=== PATIENT | female | born 1995 | race Caucasian/White ===

== ENCOUNTER 2019-04-27 04:07 | Inpatient (IN) | payer SELFPAY ==
[2019-04-27 04:37] VITALS: BMI 31.8
[2019-04-27] MEDS ORDERED: FLU VACC QS2019-20(6MOS UP)/PF 60 MCG/0.5 ML SYRINGE IM ONE (05:30)
[2019-04-27] MEDS ORDERED: HYDROcodone/Acetaminophen 5/325 mg Tablet PO PRN ×2 (08:41)
[2019-04-27] MEDS ORDERED: NS / Oxytocin 40 units/1000ml 1,000 ML IV PRN (08:41)
[2019-04-27] MEDS ORDERED: Promethazine HCl 25 MG/ML VIAL IM PRN (08:41)
[2019-04-27] MEDS ORDERED: Ibuprofen 800 MG TAB PO PRN (08:41)
[2019-04-27] MEDS ORDERED: hydrALAZINE 20 MG/ML VIAL SLOW IVP PRN (08:41)
[2019-04-27] MEDS ORDERED: Butorphanol Tartrate 1 MG/ML VIAL SLOW IVP PRN (08:41)
[2019-04-27] MEDS ORDERED: Ondansetron PF 4 MG/2 ML Vial IVP PRN (08:41)
[2019-04-27] MEDS ORDERED: Lidocaine 1% (PF) 30 ML VIAL SC PRN (08:41)
[2019-04-27] MEDS ORDERED: Betamet Acet/Betamet Na Ph 30 MG/5 ML VIAL ONE (08:45)
[2019-04-27] MEDS ORDERED: Lactated Ringer's 1,000 ML IV SCH (08:45)
[2019-04-27] MEDS ORDERED: CEFAZOLIN 1 GM in Sodium Chloride 0.9% 100 ML IVPB SCH (08:45)
--- NOTE | 2019-04-27 08:48 | PDOC.LDHP ---
Labor and Delivery H&P Chief complaint: contractions HPI: Navya Ny is a 23 y.o at 36w5d with complaints of contractions. Starting last night at 2000 she started having irregular contractions. Around 0100 on 04/27/19 they got more consistent. She denies ROM, but does reports some mucus like discharge. She denies KERNS/RUQ pain/ vision changes. Denies SOB , Cough, wheezing, chest pain. Denies Urinary complaints, denies constipation, and diarrhea. Current gestational age (weeks): 36 (5 days) Grav: 2 Para: 1 OB History Details: 11/2017, , 8lbs 4oz, terms, with PreE 2019 current Current complications: other () Abnormal US findings: No Past Medical History: Anxiety Depression Anemia Migraines Current medications: pre-katherine vitamins Previous surgical history: none Allergies/Adverse Reactions: Allergies Allergy/AdvReac Type Severity Reaction Status Date / Time penicillin G Allergy Severe Verified 04/27/19 04:32 Social history: none - Physical Exam Vital signs reviewed and normal: yes General: breathing through contractions Heart: other Lungs: nonlabored breathing Abdomen: gravid Extremeties: no edema FHT: category 1 - Vaginal Exam cm dilated: 3 - OB Labs Blood type: O RH: positive Antibody Screen: negative HIV: negative RPR: negative HEPSAg: negative 1 hour GCT: negative GBS: unknown Urine drug screen: negative Rubella: immune - Assessment L&D Assessment: labor - Plan Plan: admit to L&D, GBS antibiotic prophylaxis (Using Ancef. Pt reaqction to PCN was hives and tightness in throat. Did not visit ER for anyphylaxsis), other (Celestone 12mg IM Q12hr for lung development Anticipate )
[2019-04-27 08:58] VITALS: BP 109/56; TEMP 99.1
[2019-04-27] MEDS ORDERED: Betamet Acet/Betamet Na Ph 30 MG/5 ML VIAL IM SCH (09:00)
[2019-04-27 09:40] LABS: Hemoglobin 11.6 g/dL (12.0-16.0); Mean Corpuscular HGB CONC 36.4 g/dL (32.0-36.0); Mean Corpuscular Volume 90.8 fL (78.0-98.0); Mean Platelet Volume 9.4 fL (7.4-10.4); Platelet Count 178 thou/uL (130-400); Red Blood Cell (RBC) Count 3.52 mill/uL (4.20-5.40); White Blood Cell (WBC) Count 11.1 thou/uL (4.8-10.8)
[2019-04-27] MEDS ORDERED: ceFAZolin 1 GM/D5W 1 GM in Premix Bag 1 BAG IVPB SCH (09:45)
[2019-04-27 10:03] LABS: HBSAg Index 0.13 S/CO (0-0.99); Hep B Surf Ag Non-Reactive S/CO (NonReactive); Syphilis Antibody Nonreactive (Nonreactive); Syphilis Antibody Index 0.04 S/CO (<1.00 Non-Reactive)
== END 2019-04-27 13:47 | disposition home or self-care (01) | DRG 833 ==
LOC: L&D/OP 04:07 → L&D 09:27
PROVIDERS: ADMIT Obstetrics & Gynecology; ATTEND Obstetrics & Gynecology
DX: O60.03 Preterm labor without delivery, third trimester (principal); O99.343 Other mental disorders complicating pregnancy, third trimester; F41.9 Anxiety disorder, unspecified; O99.013 Anemia complicating pregnancy, third trimester; D64.9 Anemia, unspecified; O99.353 Diseases of the nervous system complicating pregnancy, third trimester; G43.909 Migraine, unspecified, not intractable, without status migrainosus; F32.9 Major depressive disorder, single episode, unspecified; Z3A.36 36 weeks gestation of pregnancy
CPT/HCPCS: 36415; 85027; 86780; 86850; 86900; 86901; 87340; J0690; J0702

== ENCOUNTER 2019-05-01 17:53 | Inpatient (IN) | payer SELFPAY ==
[2019-05-01] MEDS ORDERED: hydrALAZINE 20 MG/ML VIAL SLOW IVP PRN ×2 (18:52→20:05)
[2019-05-01 18:54] VITALS: BMI 31.8
[2019-05-01 19:31] LABS: #Eosinphils 0.1 thou/uL (0.0-0.7); #Lymphocytes 1.9 thou/uL (1.20-3.40); #Monocytes 1.3 thou/uL (0.11-0.59); #Neutrophils 6.5 thou/uL (1.40-6.50); %Basophils 0.3 % (0.0-1.0); %Eosinophils 1.1 % (0.0-10.0); %Monocytes 13.5 % (0.0-10.0); %Neutrophils 66.1 % (42.0-75.0); Hemoglobin 10.7 g/dL (12.0-16.0); Mean Corpuscular HGB CONC 36.3 g/dL (32.0-36.0); Mean Corpuscular Hemoglobin 33.2 pg (27.0-31.0); Mean Corpuscular Volume 91.4 fL (78.0-98.0); Mean Platelet Volume 9.7 fL (7.4-10.4); Platelet Count 196 thou/uL (130-400); RBC Distribution Width 14.9 % (11.5-14.5); Red Blood Cell (RBC) Count 3.22 mill/uL (4.20-5.40); White Blood Cell (WBC) Count 9.8 thou/uL (4.8-10.8)
[2019-05-01 19:44] LABS: Creatinine, Urine 37.45 mg/dL (47-110); Protein, Urine Random Quant Less than 10 mg/dL (1-14)
[2019-05-01 19:49] LABS: ALT (SGPT) 168 U/L (8-55); AST (SGOT) 107 U/L (5-34); Albumin 3.1 g/dL (3.5-5.0); Alkaline Phosphatase 186 U/L (40-110); Anion Gap 14 mmol/L (10-20); BUN (Urea Nitrogen) 13 mg/dL (7.0-18.7); Bilirubin, Total 0.3 mg/dL (0.2-1.2); Calc. Creatinine Clearance 200 mL/min (70-130); Calcium 8.7 mg/dL (7.8-10.44); Carbon Dioxide 20 mmol/L (22-29); Chloride 108 mmol/L (98-107); Estimated GFR-MDRD Greater than 90; Globulin 2.7 g/dL (2.4-3.5); Glucose 74 mg/dL (70-105); Potassium 3.7 mmol/L (3.5-5.1); Protein, Total 5.8 g/dL (6.0-8.3); Sodium 138 mmol/L (136-145)
[2019-05-01] MEDS ORDERED: FLU VACC QS2019-20(6MOS UP)/PF 60 MCG/0.5 ML SYRINGE IM ONE (20:00)
[2019-05-01] MEDS ORDERED: Promethazine HCl 25 MG/ML VIAL IM PRN (20:05)
[2019-05-01] MEDS ORDERED: Ondansetron PF 4 MG/2 ML Vial IVP PRN (20:05)
[2019-05-01 20:33] LABS: Acetaminophen Less than 6.0 mcg/mL (10.0-30.0); Alcohol Less than 10 mg/dL (Less than 10); Salicylate Less than 8.0 mg/dL (15.0-30.0)
[2019-05-01 20:34] LABS: Amphetamine Not Detected (NotDetected); Barbiturates Screen Not Detected (NotDetected); Benzodiazepine Screen Not Detected (NotDetected); Cocaine Metabolite Screen Not Detected (NotDetected); Medtox Control Line Valid? VALID (VALID); Medtox Reader # READER 4; Methadone Not Detected (NotDetected); Methamphetamine Not Detected (NotDetected); Opiate Screen Not Detected (NotDetected); Oxycodone Screen Not Detected (NotDetected); Phencyclidine (PCP) Not Detected (NotDetected); THC/Cannabinoid Screen Not Detected (NotDetected); Tricyclic Screen Not Detected (NotDetected)
[2019-05-01 20:40] LABS: Hemoglobin 10.9 g/dL (12.0-16.0); Mean Corpuscular HGB CONC 36.3 g/dL (32.0-36.0); Mean Corpuscular Hemoglobin 33.2 pg (27.0-31.0); Mean Corpuscular Volume 91.5 fL (78.0-98.0); Mean Platelet Volume 9.8 fL (7.4-10.4); Platelet Count 198 thou/uL (130-400); RBC Distribution Width 14.9 % (11.5-14.5); Red Blood Cell (RBC) Count 3.27 mill/uL (4.20-5.40); White Blood Cell (WBC) Count 10.6 thou/uL (4.8-10.8)
[2019-05-01 21:16] LABS: Syphilis Antibody Nonreactive (Nonreactive); Syphilis Antibody Index 0.03 S/CO (<1.00 Non-Reactive)
--- NOTE | 2019-05-01 22:15 | ULT ---
EXAM: OB ultrasound Umbilical artery ultrasound COMPARISON: None HISTORY: Preeclampsia TECHNIQUE: Multiplanar grayscale and color Doppler images were obtained in a transabdominal ult rasound. Spectral analysis of the Doppler waveforms of the umbilical artery were performed. FINDINGS: There is a single live intrauterine with heart rate of 152 bpm. The fetus is in v ertex presentation. Analysis of the umbilical artery shows persistent flow in diastole and normal systolic to diastolic r atio. The placenta is left lateral in location without focal abnormality. DARVIN is 10.3 cm which is normal. T he cervix is normal in length. There is no evidence of placenta previa. IMPRESSION: 1. Single live intrauterine 2. Normal umbilical artery ultrasound
[2019-05-01 22:27] LABS: HBSAg Index 0.13 S/CO (0-0.99); Hep B Core Total Ab Non-Reactive (NonReactive); Hep B Core Total Index 0.05 S/CO (0-0.79); Hep B Surf Ag Non-Reactive S/CO (NonReactive); Hep C IgG Ab Non-Reactive (NonReactive); Hep C Index 0.05 S/CO (0-0.79)
--- NOTE | 2019-05-01 22:59 | PDOC.FPROB ---
FMR OB H&P: HPI - History of Present Illness Chief Complaint: Elevated BP's Indentification: 23 year old at 37.2 wks History of Present Illness: 23 year old at 37.2 wks presents with elevated BP's. Patient states that last night she started to feel "puffy" and swollen. Her BP's last night were reportedly mild range. She woke up this morning feeling worse. She had a BP high to 154/90. She has history of Pre-E in last with term . Patient called the regional marketing director physician who advised she come to L&D for further workup. Patient denies vision changes, headaches, vaginal discharge, abdominal pain, LoF, or contractions. She endorses movement. Patient has had no complications in up to this point. Primary Care Physician: Gio FMR OB H&P: Current - Care : 2 Para: 1001 Gestational age: 37.2 wks Due date: 05/20/2019 - OB Labs Blood type: O RH: positive Antibody Screen: negative HIV: negative RPR: negative HepBsAg: negative Urine drug screen: negative Gonorrhea: negative Chlamydia: negative 1 hour gtt: 93 GBS: unknown FMR OB H&P: History - Past Medical History PMH: Anxiety Depression - OB History OB History: Pre-E in prior , on ASA Anemia of - MUNICIPAL FIREFIGHTER History MUNICIPAL FIREFIGHTER History: Denies history of STD's or PID - Surgical History Sx History: [place] teeth removal - Social History Social History: Denies tobacco, alcohol, or drug use - Family History Family History: Mother with breast and cervical cancer FMR OB H&P: Medications - Current Home Medications: Medication Instructions Recorded Confirmed Type Aspirin [Ecotrin Low Strength] 1 tab PO DAILY 04/27/19 05/01/19 History Iron 1 tab PO DAILY 04/27/19 05/01/19 History Vit37/Iron/Folic Acid 1 tab PO DAILY 04/27/19 05/01/19 History [Prenata Chewable Tablet] Allergies/Adverse Reactions: Allergies Allergy/AdvReac Type Severity Reaction Status Date / Time penicillin G Allergy Severe Verified 04/27/19 04:32 FMR OB H&P: ROS - Review of Systems General: reports: weight/appetite/sleep changes (Increase in weight). denies: fever/chills Eyes: denies: vision changes, double vision, scotomas ENT: denies: nasal congestion, rhinorrhea, sore throat Cardiovascular: reports: edema. denies: chest pain, palpitation Respiratory: denies: cough, shortness of breath Gastrointestinal: denies: abdominal pain, nausea, vomiting, diarrhea Genitourinary (Female): denies: dysuria, vaginal discharge, vaginal bleeding, contractions Musculoskeletal: denies: pain, stiffness Neurologic: denies: numbness, syncope Integumentary: denies: itching, rash, lesions Hematologic/Lymphatic: denies: prolonged or excessive bleeding Psychological: reports: depression, anxiety FMR OB H&P: Vital Signs - Maternal Vital signs: Vital Signs - First Documented Temp Pulse Resp BP 98.7 F 83 18 122/83 05/01/19 18:20 05/01/19 18:20 05/01/19 18:20 05/01/19 18:20 - Heart Tones Baseline: 140 Variability: moderate Acceleration: present Deceleration: absent [place] contractions every: None FMR OB H&P: Physical Exam - Physical Exam General: NAD, awake, alert and oriented HEENT: EOMI, MMM, grossly normal vision, grossly normal hearing Heart: RRR, pulses present, other (1+ edema 16 pound weight gain in last week) General: CTAB, no respiratory distress Abdomen: soft, gravid, non-tender Musculoskeletal: pulses present, FROM in all four extremities Neurological: no tremor, no focal deficit Skin: no rash, capillary refill <2 seconds Lymphatic: no unusual bruising or bleeding Psychiatric: intact recent and remote memory, good judgement and insight, normal mood and affect FMR OB H&P: Results - Labs Lab results: Laboratory Results - last 24 hr 05/01/19 05/01/19 05/01/19 19:10 19:10 19:19 WBC RBC Hgb Hct MCV MCH MCHC RDW Plt Count MPV Neutrophils % Lymphocytes % Monocytes % Eosinophils % Basophils % Neutrophils # Lymphocytes # Monocytes # Eosinophils # Basophils # Sodium 138 Potassium 3.7 Chloride 108 H Carbon Dioxide 20 L Anion Gap 14 BUN 13 Creatinine 0.63 Estimated GFR (MDRD) Greater than 90 Glucose 74 Calcium 8.7 Total Bilirubin 0.3 AST 107 H ALT 168 H Alkaline Phosphatase 186 H Serum Total Protein 5.8 L Albumin 3.1 L Globulin 2.7 Albumin/Globulin Ratio 1.1 L U Random Total Protein Less than 10 Urine Creatinine 37.45 L Salicylates Urine Opiates Screen Not Detected Ur Oxycodone Screen Not Detected Urine Methadone Screen Not Detected Ur Propoxyphene Screen Not Detected Acetaminophen Ur Barbiturates Screen Not Detected Ur Tricyclics Screen Not Detected Ur Phencyclidine Scrn Not Detected Ur Amphetamines Screen Not Detected U Methamphetamines Scrn Not Detected U Benzodiazepines Scrn Not Detected U Cocaine Metab Screen Not Detected U Cannabinoids Screen Not Detected Drug Screen Comment Plasma Alcohol Syphilis IgG/IgM Ab Blood Type Antibody Screen 05/01/19 05/01/19 05/01/19 19: 19: 19: WBC 9.8 RBC 3.22 L Hgb 10.7 L Hct 29.5 L MCV 91.4 MCH 33.2 H MCHC 36.3 H RDW 14.9 H Plt Count 196 MPV 9.7 Neutrophils % 66.1 Lymphocytes % 19.0 L Monocytes % 13.5 H Eosinophils % 1.1 Basophils % 0.3 Neutrophils # 6.5 Lymphocytes # 1.9 Monocytes # 1.3 H Eosinophils # 0.1 Basophils # 0.0 Sodium Potassium Chloride Carbon Dioxide Anion Gap BUN Creatinine Estimated GFR (MDRD) Glucose Calcium Total Bilirubin AST ALT Alkaline Phosphatase Serum Total Protein Albumin Globulin Albumin/Globulin Ratio U Random Total Protein Urine Creatinine Salicylates Less than 8.0 L Urine Opiates Screen Ur Oxycodone Screen Urine Methadone Screen Ur Propoxyphene Screen Acetaminophen Less than 6.0 L Ur Barbiturates Screen Ur Tricyclics Screen Ur Phencyclidine Scrn Ur Amphetamines Screen U Methamphetamines Scrn U Benzodiazepines Scrn U Cocaine Metab Screen U Cannabinoids Screen Drug Screen Comment Plasma Alcohol Less than 10 Syphilis IgG/IgM Ab Blood Type O POSITIVE Antibody Screen NEGATIVE 05/01/19 05/01/19 20:28 20:28 WBC 10.6 RBC 3.27 L Hgb 10.9 L Hct 29.9 L MCV 91.5 MCH 33.2 H MCHC 36.3 H RDW 14.9 H Plt Count 198 MPV 9.8 Neutrophils % Lymphocytes % Monocytes % Eosinophils % Basophils % Neutrophils # Lymphocytes # Monocytes # Eosinophils # Basophils # Sodium Potassium Chloride Carbon Dioxide Anion Gap BUN Creatinine Estimated GFR (MDRD) Glucose Calcium Total Bilirubin AST ALT Alkaline Phosphatase Serum Total Protein Albumin Globulin Albumin/Globulin Ratio U Random Total Protein Urine Creatinine Salicylates Urine Opiates Screen Ur Oxycodone Screen Urine Methadone Screen Ur Propoxyphene Screen Acetaminophen Ur Barbiturates Screen Ur Tricyclics Screen Ur Phencyclidine Scrn Ur Amphetamines Screen U Methamphetamines Scrn U Benzodiazepines Scrn U Cocaine Metab Screen U Cannabinoids Screen Drug Screen Comment Plasma Alcohol Syphilis IgG/IgM Ab Nonreactive Blood Type Antibody Screen FMR OB H&P: A/P - Problem List (1) Term Current Visit: Yes Status: Acute Code(s): Z34.90 - ENCNTR FOR SUPRVSN OF NORMAL , UNSP, UNSP TRIMESTER (2) Transaminitis Current Visit: Yes Status: Acute Code(s): R74.0 - NONSPEC ELEV OF LEVELS OF TRANSAMNS & LACTIC ACID DEHYDRGNSE (3) Elevated BP without diagnosis of hypertension Current Visit: Yes Status: Acute Code(s): R03.0 - ELEVATED BLOOD-PRESSURE READING, W/O DIAGNOSIS OF HTN (4) Anxiety Current Visit: Yes Status: Acute Code(s): F41.9 - ANXIETY DISORDER, UNSPECIFIED (5) Depression Current Visit: Yes Status: Acute Code(s): F32.9 - MAJOR DEPRESSIVE DISORDER , SINGLE EPISODE, UNSPECIFIED (6) History of pre-eclampsia in prior , currently Current Visit: Yes Status: Acute Code(s): O09.299 - SUPRVSN OF PREG W POOR REPRODCTV OR OBSTET HISTORY, UNSP TRI Disposition: 23 year old at 37.2 wks TIUP - O+, cannot find documentation or rubella status - No complications in current - Hx Pre-E at 40 wks with prior - Concern for gHTN vs. Pre-E given swelling and elevated BP's at home - No documentation of GBS status, will obtain GBS swab and treat for GBS if patient induced as she has had GBS in prior - Growth today with hadlock 94%, cephalic presentation, DARVIN 10 cm Elevated BP without diagnosis of HTN - Patient reports BP high to 150/40 at home - Significant swelling with weight gain 16 pounds in 1 week - BP's on L&D have all been WNL - AST/ALT both 2x normal limit, but in absence of elevated BP or other severe features, not an indication for delivery at this time - Monitor BP for 4 hours - Will obs overnight and collect 12h urine protein as this may be more accurate than the urine protein/creatinine ratio which was neg - CBC with mild anemia, consistent with previous diagnosis of anemia - AST/ALT 2x upper limit of normal. In absence of elevated BP or other acute findings, not indication for delivery at this time - Will continue to monitor BP and if patient spikes elevated BP, will induce for Pre-E Transaminitis - AST and ALT 2x upper limit of normal - Hepatitis panel pending - RUQ abdominal ultrasound negative - Uncertain etiology - Continue to monitor BP, and if patient spikes elevated BP, will need to induce for pre-E severe features - Drug screen negative - Coag studies pending - Repeat CMP in AM Hx of Pre-E in prior - Patient on daily ASA - No previously documented elevated BP's in this Anemia - Continue iron supplementation Anxiety/Depression - Not currently on medications, but patient undergoing counseling Migraines - Currently asymptomatic Dispo: Obs on L&D. 12h urine protein. Monitor BP's. Will need GBS ppx if induced. Discussion: Date/Time: 05/01/19 1006 This H&P was discussed with Dr. Linda who agrees with the above documentation and plan. Signature: Nury Mondragon DO PGY-3 Addendum - Attending - Attending Attestation Date/Time: 05/04/19 [id number] I personally evaluated the patient and discussed the management with Dr. Mondragon I agree with the History, Examination, Assessment and Plan documented above with any addition or exceptions noted below. Pt reports swelling and elevated bp at home. has h/o preeclampsia with previous . denies hodges/sob/abd pain. Work up sig for isolated elevated lfts. hepatitis panel is neg, tylenol levels not elevated, ruq us w/o sign of gallbladder disease or fatty liver/ Pt has 16lb wt gain in the last 10 days. We will admit to observation for 12hr urine collection and bp monitoring. Pt may be developing an atypical presentation for preeclampsia. will continue to observe
[2019-05-01 23:10] LABS: HBSAB Concentration 3044.32 mIU/mL; Hep B Surf AB Reactive (NonReactive)
[2019-05-02 02:22] LABS: Prothrombin Time 12.8 SEC (12.0-14.7)
[2019-05-02] MEDS: Acetaminophen 500 MG TAB PO PRN ×2 (06:37→12:34)
--- NOTE | 2019-05-02 10:09 | PDOC.EVN ---
Event Note - Event Note Event Note: SOLITARIO OnCopal 37 weeks 2 days At bedside now Case reviewed Here with Dr Alfie Duque KERNS O. BP 135/84 CBC pending Strop reviewed A/P: Suspected Preeclampsia (atypical) with LFT elevation but BPs ok Labs pending this AM Discussed possible IOL...we will likely do so this admit. I will review with Dr Li
[2019-05-02 10:13] LABS: #Basophils 0.1 thou/uL (0.0-0.2); #Eosinphils 0.1 thou/uL (0.0-0.7); #Monocytes 0.7 thou/uL (0.11-0.59); #Neutrophils 5.2 thou/uL (1.40-6.50); %Basophils 0.7 % (0.0-1.0); %Eosinophils 1.4 % (0.0-10.0); %Lymphocytes 24.4 % (21.0-51.0); %Monocytes 8.2 % (0.0-10.0); %Neutrophils 65.3 % (42.0-75.0); Hemoglobin 10.7 g/dL (12.0-16.0); Mean Corpuscular HGB CONC 36.3 g/dL (32.0-36.0); Mean Corpuscular Hemoglobin 33.3 pg (27.0-31.0); Mean Corpuscular Volume 91.7 fL (78.0-98.0); Mean Platelet Volume 9.7 fL (7.4-10.4); Platelet Count 180 thou/uL (130-400); RBC Distribution Width 15.1 % (11.5-14.5)
[2019-05-02 10:22] LABS: Urine Total Volume 1575 mL (600-1600)
[2019-05-02 10:54] LABS: ALT (SGPT) 150 U/L (8-55); AST (SGOT) 83 U/L (5-34); Alkaline Phosphatase 180 U/L (40-110); Anion Gap 16 mmol/L (10-20); BUN (Urea Nitrogen) 10 mg/dL (7.0-18.7); Bilirubin, Total 0.3 mg/dL (0.2-1.2); Calc. Creatinine Clearance 216 mL/min (70-130); Calcium 8.5 mg/dL (7.8-10.44); Carbon Dioxide 18 mmol/L (22-29); Chloride 107 mmol/L (98-107); Estimated GFR-MDRD Greater than 90; Globulin 2.4 g/dL (2.4-3.5); Glucose 105 mg/dL (70-105); Potassium 3.6 mmol/L (3.5-5.1); Protein, Total 5.4 g/dL (6.0-8.3); Sodium 137 mmol/L (136-145)
[2019-05-02 10:55] LABS: Protein, Urine Less than 10 mg/dL (1-14)
--- NOTE | 2019-05-02 11:23 | PDOC.EVN ---
Event Note - Event Note Event Note: SOLITARIO OnCall: Lab Check Labs with slightly decreased LFTs but still above normal (ast 80s, ALT 150s). I notified Dr Li, but she is out of town until late PM. I was then notified by Tamica that the patient sees Josefina Chaidez. I have sent Josefina Chaidez a tiger text to see who the private provider is for the patient. I believe it would be best to have IOL. Kaylynn has informed me she is out of town. I will plan on IOL this PM, and see when Guillermo returns.
--- NOTE | 2019-05-02 20:57 | PDOC.EVN ---
Event Note - Event Note Event Note: At Bedside Mary Lou good FM NST reactive 130/74 Reviewed cytotec tonight again with her...reason for IOL is atypical Preeclampsia with elevated LFTs GBS was collected but results pending...hold on ABX for now as over 37 weeks. Add ABX if results are pos
[2019-05-02] MEDS ORDERED: Misoprostol 100 MCG TAB VAG SCH (21:00)
[2019-05-02] MEDS: Misoprostol 100 MCG TAB VAG SCH (22:15)
[2019-05-02] MEDS: Lactated Ringer's 1,000 ML IV SCH (22:15)
[2019-05-03] MEDS: Misoprostol 100 MCG TAB VAG SCH ×2 (01:40→13:51)
--- NOTE | 2019-05-03 06:13 | PDOC.EVN ---
Event Note - Event Note Event Note: s/p cytotec last PM... This AM last check: 3cm dilation per RN I have reviewed her monitor strip Will start pitocin at 0700 to continue IOL GBS culture still pending in lab
--- NOTE | 2019-05-03 07:24 | ULT ---
US Gallbladder RUQ: 05/01/2019 8:01 PM CLINICAL HISTORY: Elevated LFTs. STUDY: Limited right upper quadrant ultrasound of abdomen. COMPARISON: None. FINDINGS: Liver: Size: Normal. Echogenicity: Normal. Contour: Smooth. Mass: None. Bile ducts: No intrahepatic or extrahepatic biliary dilatation. Common bile duct measures 3 mm. Gallbladder: Normal. Pancreas: Head, body, and tail appear normal. Right kidney: No pelvicalyceal dilatation. Right kidney measuring 11.5 cm in length. IMPRESSION: Unremarkable exam.
[2019-05-03] MEDS ORDERED: Calcium Gluc 4.6 MEQ/10 ML (100 MG/ML) SLOW IVP PRN (08:32)
--- NOTE | 2019-05-03 08:37 | PDOC.EVN ---
Event Note - Event Note Event Note: Received report from Dr. Ness. at 37 3/7 weeks with PIH, elevated LFTs now undergoing induction. Last SVE . FHTs sstable. Last BP= > 160 systolic. Will start MgSo4 and begin ABX for h/o +GBS. Pen allergic but has had Ancef w/o problems recently. Continue induction.
[2019-05-03] MEDS ORDERED: Magnesium Sulfate 20 gm/500 ml 20 GM/500 ML BAG IVPB SCH ×2 (08:45→15:37)
[2019-05-03] MEDS ORDERED: Magnesium Sulfate 20 GM/WATER 500 ML BAG IVPB SCH (08:45)
[2019-05-03] MEDS: ceFAZolin 1 GM/D5W 1 GM in Premix Bag 1 BAG IVPB SCH (09:19)
[2019-05-03] MEDS: Lactated Ringer's 1,000 ML IV SCH ×2 (09:20→12:56)
[2019-05-03] MEDS ORDERED: Fentanyl 4 mcg/Bup 0.1% Cadd 100 ML ONE (09:52)
[2019-05-03] MEDS ORDERED: diphenhydrAMINE 50 MG/ML VIAL IVP PRN (10:27)
[2019-05-03] MEDS ORDERED: Lactated Ringer's 500 ML IV PRN (10:27)
[2019-05-03] MEDS ORDERED: Ondansetron PF 4 MG/2 ML Vial IVP PRN (10:27)
[2019-05-03] MEDS ORDERED: ePHEDrine/0.9% NaCl/PF SYRINGE 50 mg/10 ml SLOW IVP PRN (10:27)
[2019-05-03] MEDS ORDERED: Acetaminophen 325 MG TAB PO PRN (10:27)
[2019-05-03] MEDS ORDERED: Naloxone HCl 0.4 mg/ml Vial IVP PRN ×2 (10:27)
[2019-05-03] MEDS ORDERED: Promethazine HCl 25 MG/ML VIAL IM PRN (10:27)
[2019-05-03] MEDS ORDERED: Communication Order-Pharmacy FS SCH (10:30)
[2019-05-03] MEDS ORDERED: Fentanyl 4 mcg/Bupivacaine 0.1% Cassette 100 ML EPIDURAL SCH (10:30)
--- NOTE | 2019-05-03 10:35 | PDOC.EVN ---
Event Note - Event Note Event Note: Comfortable s/p epidural. SVE 4/80/-1, vtx. Fhts are stable. UCs q 2-4 min. Pit at 10 mu/min. Mg at 2 gms per hr. Continue induction.
[2019-05-03] MEDS ORDERED: Lidocaine 1% (PF) 30 ML VIAL ONE (13:06)
--- NOTE | 2019-05-03 13:45 | PDOC.EVN ---
Event Note - Event Note Event Note: Patient is resting comfortably in bed. She notes some discomfort with recent contractions. Epidural placed. Recent SVE 5.5/80/-2 @ 12:20. FHT stable, baseline 130s, no decel, mod variability, no recent accel. Ctx q 1-3 min. Pit was decreased to 8 for a time, now back at 10. Last BP 135/87. Mg at 2 gms/hr. Continue current management. Addendum - Attending - Attending Attestation Date/Time: 05/03/191944 I personally evaluated the patient and discussed the management with Dr. Greenwood I agree with the Assessment and Plan documented above.
[2019-05-03] MEDS: NS w/ Oxytocin 10 units 500 ML IV SCH (13:51)
[2019-05-03] MEDS ORDERED: CEFAZOLIN IVPB SCH (14:00)
[2019-05-03] MEDS ORDERED: CEFAZOLIN 1 GM in Sodium Chloride 0.9% 100 ML IVPB SCH (14:00)
[2019-05-03] MEDS: NS / Oxytocin 40 units/1000ml 1,000 ML ONE ×2 (15:00→16:37)
[2019-05-03] MEDS: Misoprostol 200 MCG TAB ONE ×2 (15:06→15:07)
[2019-05-03] MEDS ORDERED: Carboprost 250 MCG/ML AMP ONE (15:10)
[2019-05-03] MEDS ORDERED: Tranexamic Acid 1,000 MG/10 ML VIAL ONE (15:31)
[2019-05-03] MEDS ORDERED: Bisacodyl 10 MG SUPP PR PRN (15:33)
[2019-05-03] MEDS ORDERED: Lanolin Ointment 7 GM TUBE TOP PRN (15:33)
[2019-05-03] MEDS ORDERED: Misoprostol 200 MCG TAB VAG PRN (15:33)
[2019-05-03] MEDS ORDERED: Benzocaine-Menthol 82.5 ML CAN TOP PRN (15:33)
[2019-05-03] MEDS ORDERED: Milk Of Magnesia 30 ML UDCUP PO PRN (15:33)
--- NOTE | 2019-05-03 15:35 | PDOC.OPDEL ---
OB Operative/Delivery Note Delivery Dr/Surgeon: Allegra Assist: Krystyna Pre-Delivery Diagnosis: medically indicated induction Procedure/Post Delivery Dx: spontaneous vaginal delivery Weeks gestation: 37 Anesthesia: local - Additional Findings/Plan Placenta delivered: spontaneous Repaired Obstetrical Laceration: periurethral Estimated blood loss: 700, QBL pending Compilations/Other Findings: Rapid progress with . Placenta delivered intact [place]. Small periuretral lac sutered with 3-0 chromic. Garcia placed. Episodess of atony tx. with Cytotec 800 mcg MO, Hemabate 250 mcg IM and TXA 1 gm IV. T&C x 3 units. H/H, PT/PTT, fibrinogen ordered.
[2019-05-03 15:43] LABS: Hemoglobin 10.5 g/dL (12.0-16.0); Platelet Count 202 thou/uL (130-400)
[2019-05-03] MEDS ORDERED: NS / Oxytocin 40 units/1000ml 1,000 ML IV SCH (15:45)
[2019-05-03 15:49] LABS: INR-International Normal Ratio 0.9; Prothrombin Time 12.5 SEC (12.0-14.7)
--- NOTE | 2019-05-03 16:26 | PDOC.EVN ---
Event Note - Event Note Event Note: Minimal bleeding seen now. VSS Pulse= 90's. Labs return: H/H= 10.5/29.7, plts= 202, PT/PTT= 12.5/24, fibrinogen= 446. Will cont. Mg at 1 gm/hr and follow serial H/Hs.
[2019-05-03] MEDS ORDERED: Tranexamic Acid 1,000 MG in Sodium Chloride 0.9% 250 ML 250 ML IVPB ONE (16:30)
[2019-05-03] MEDS ORDERED: Carboprost 250 MCG/ML AMP IM SCH (16:30)
[2019-05-03] MEDS: Ferrous Sulfate 325 MG TAB PO SCH (17:31)
[2019-05-03] MEDS: Ibuprofen 800 MG TAB PO SCH (17:48)
[2019-05-03 21:28] LABS: #Eosinphils 0.1 thou/uL (0.0-0.7); #Lymphocytes 1.3 thou/uL (1.20-3.40); #Monocytes 1.2 thou/uL (0.11-0.59); #Neutrophils 10.1 thou/uL (1.40-6.50); %Basophils 0.2 % (0.0-1.0); %Eosinophils 0.5 % (0.0-10.0); %Lymphocytes 10.4 % (21.0-51.0); %Monocytes 9.2 % (0.0-10.0); %Neutrophils 79.6 % (42.0-75.0); Hemoglobin 8.7 g/dL (12.0-16.0); Mean Corpuscular HGB CONC 35.8 g/dL (32.0-36.0); Mean Corpuscular Hemoglobin 33.1 pg (27.0-31.0); Mean Corpuscular Volume 92.5 fL (78.0-98.0); Mean Platelet Volume 9.5 fL (7.4-10.4); Platelet Count 145 thou/uL (130-400); RBC Distribution Width 15.2 % (11.5-14.5); Red Blood Cell (RBC) Count 2.63 mill/uL (4.20-5.40); White Blood Cell (WBC) Count 12.6 thou/uL (4.8-10.8)
[2019-05-03] MEDS ORDERED: Lidocaine 2% MPF 10 ML AMP (For Epidural Use) ONE (21:36)
[2019-05-04] MEDS: Docusate Calcium (SURFAK) 240 MG CAP PO SCH ×3 (00:05→21:58)
[2019-05-04] MEDS: Lactated Ringer's 1,000 ML IV SCH ×4 (00:51→21:06)
--- NOTE | 2019-05-04 05:05 | PDOC.PP ---
Post Progress Note Post Day #: PPD1 Subjective: Resting, no complaints. PO intake tolerated: yes Flatus: no Ambulation: no Weight Weight 99.337 kg - Physical Examination General: NAD Respiratory: non-labored breathing Neurological: no gross focal deficits Psychiatric: normal affect Result Diagrams: 05/03/19 21:09 05/02/19 09:59 Additional Labs: Post Labs Blood Type O POSITIVE 05/01/19 19:19 Hep Bs Antigen Non-Reactive S/CO (NonReactive) 05/01/19 20:28 - Assessment/Plan Doing well s/p with PPH. Mgso4 x 24 hrs delivered. Repeat CBC this AM.
[2019-05-04] MEDS: ceFAZolin 1 GM/D5W 1 GM in Premix Bag 1 BAG IVPB SCH ×4 (05:16→21:06)
[2019-05-04] MEDS: Ibuprofen 800 MG TAB PO SCH ×3 (05:54→21:58)
[2019-05-04 06:29] LABS: #Lymphocytes 1.3 thou/uL (1.20-3.40); #Monocytes 0.8 thou/uL (0.11-0.59); #Neutrophils 7.8 thou/uL (1.40-6.50); %Basophils 0.2 % (0.0-1.0); %Eosinophils 0.4 % (0.0-10.0); %Lymphocytes 12.9 % (21.0-51.0); %Monocytes 7.9 % (0.0-10.0); %Neutrophils 78.5 % (42.0-75.0); Hemoglobin 8.6 g/dL (12.0-16.0); Mean Corpuscular HGB CONC 35.7 g/dL (32.0-36.0); Mean Corpuscular Volume 92.3 fL (78.0-98.0); Platelet Count 172 thou/uL (130-400); RBC Distribution Width 15.4 % (11.5-14.5); White Blood Cell (WBC) Count 9.9 thou/uL (4.8-10.8)
[2019-05-04] MEDS: NS w/ Oxytocin 10 units 500 ML IV SCH (07:04)
[2019-05-04] MEDS ORDERED: Adacel (T-DAP) 0.5 ML SYRINGE IM ONE (09:00)
[2019-05-04] MEDS: Ferrous Sulfate 325 MG TAB PO SCH ×2 (09:40→17:05)
[2019-05-04] MEDS: Prenatal Vitamin 1 TAB PO SCH (09:40)
[2019-05-04] MEDS ORDERED: FLU VACC QS2019-20(6MOS UP)/PF 60 MCG/0.5 ML SYRINGE IM ONE (17:00)
[2019-05-05] MEDS: Lactated Ringer's 1,000 ML IV SCH ×2 (05:22→15:23)
[2019-05-05] MEDS: Ibuprofen 800 MG TAB PO SCH ×2 (05:25→14:34)
[2019-05-05] MEDS: NS w/ Oxytocin 10 units 500 ML IV SCH (06:35)
[2019-05-05] MEDS: ceFAZolin 1 GM/D5W 1 GM in Premix Bag 1 BAG IVPB SCH ×2 (06:35→15:23)
--- NOTE | 2019-05-05 08:51 | PDOC.PP ---
Post Progress Note Post Day #: PPD2 Subjective: Feels very well, no complaints. PO intake tolerated: yes Flatus: yes Ambulation: yes Vital Signs (12 hours) Temp Pulse Resp BP Pulse Ox 05/05/19 08:09 98.3 F 66 24 H 129/64 98 05/05/19 05:15 98.2 F 73 18 121/64 05/05/19 00:40 98.7 F 86 18 123/71 Weight Weight 99.337 kg - Physical Examination General: NAD Respiratory: non-labored breathing Abdominal: no distention Neurological: no gross focal deficits Psychiatric: normal affect Result Diagrams: 05/04/19 06:16 05/02/19 09:59 Additional Labs: Post Labs Blood Type O POSITIVE 05/01/19 19:19 Hep Bs Antigen Non-Reactive S/CO (NonReactive) 05/01/19 20:28 - Assessment/Plan Doing well s/p complicated by PPH and PIH. Off Mg since yesterday PM H/H stable. Anticipate home later this PM RTC w/ Josefina Light in 2 weeks
[2019-05-05] MEDS: Prenatal Vitamin 1 TAB PO SCH (09:33)
[2019-05-05] MEDS: Docusate Calcium (SURFAK) 240 MG CAP PO SCH (09:33)
[2019-05-05] MEDS: Ferrous Sulfate 325 MG TAB PO SCH (09:55)
[2019-05-05 12:21] VITALS: BP 139/71; TEMP 98.2
--- NOTE | 2019-05-07 06:16 | PQF ---
[employer] Punch Machine Operator Helper Crystal Reports Winform ViewerAnant NavyaABRIL Reid MD [id number] CLINICAL DOCUMENTATION CLARIFICATION FORM: POST DISCHARGE Addendum to original discharge summary date: ____ Late entry note date: __ DATE: 05/07/19 ATTN: Abril Santoyo Please exercise your independent, professional judgment in responding to the clarification form. Clinical indicators are provided on the bottom of this form for your review Can you please further specify the specificity of Anemia? Please check appropriate box(s): [ X ] Acute blood loss anemia [ ] Post-op anemia related to acute blood loss [ ] Other diagnosis please specify [ ] Unable to determine In addition, please specify: Present on Admission (POA): [ ] Yes [ X ] No [ ] Unable to determine For continuity of documentation, please document condition throughout progress notes and discharge summary. Thank You. CLINICAL INDICATORS - SIGNS / SYMPTOMS / LABS H and P pg.2- Anemia of H and P pg.10- Anemia continue iron supplementation Labor and Delivery Notes 05/03 pg.1- EBL 700 Labor and Delivery Notes 05/03 pg.1- Small periurethral lac sutured with 3-0 chromic PN 05/04 pg.1- Doing well s/p with PPH Laboratory- HGB 10.7,L 10.9L,10.7L, 10.5L,8.7L,8.6L Laboratory- HCT- 26.5L, 29.4L, 24.4L,24.0L RISK FACTORS 23yo at 37.2weeks- H and P pg.9 S/p with PPH- PN pg.1 TREATMENTS: IV Fluids- MAR 05/03 H and H monitoring- Labotory 05/01 Iron Supplementation- H and P pg.10 (This form is maintained as a part of the permanent medical record) 2014 [employer] All Rights Reserved Loc [email or web address] [not provided] MTDD
== END 2019-05-05 15:30 | disposition home or self-care (01) | DRG 806 ==
LOC: L&D/OP 17:53 → L&D 21:53 → OBSVTOIN 21:53 → L&D 05-02 19:00 → 3SW 05-04 16:15
PROVIDERS: ADMIT Obstetrics & Gynecology; ATTEND Obstetrics & Gynecology
PROC: 10E0XZZ Delivery of Products of Conception, External Approach (ICD-10-PCS; principal; 2019-05-03)
PROC: 3E0P7VZ Introduction of Hormone into Female Reproductive, Via Natural or Artificial Opening (ICD-10-PCS; 2019-05-03)
PROC: 3E033VJ Introduction of Other Hormone into Peripheral Vein, Percutaneous Approach (ICD-10-PCS; 2019-05-03)
PROC: 0UQMXZZ Repair Vulva, External Approach (ICD-10-PCS; 2019-05-03)
PROC: 3E02340 Introduction of Influenza Vaccine into Muscle, Percutaneous Approach (ICD-10-PCS; 2019-05-03)
DX: O14.94 Unspecified pre-eclampsia, complicating childbirth (principal); O99.354 Diseases of the nervous system complicating childbirth; Z37.0 Single live birth; D62 Acute posthemorrhagic anemia; O99.344 Other mental disorders complicating childbirth; O72.1 Other immediate postpartum hemorrhage; O99.02 Anemia complicating childbirth; D64.9 Anemia, unspecified; F41.9 Anxiety disorder, unspecified; F32.9 Major depressive disorder, single episode, unspecified; O71.82 Other specified trauma to perineum and vulva; Z3A.37 37 weeks gestation of pregnancy; Z23 Encounter for immunization; Z88.0 Allergy status to penicillin; O13.5 Gestational [pregnancy-induced] hypertension without significant proteinuria, complicating the puerperium; G43.909 Migraine, unspecified, not intractable, without status migrainosus
CPT/HCPCS: 36415; 51702; 59025; 76705; 76815; 80053; 80306; 80307; 82570; 84156; 84550; 85014; 85018; 85025; 85049; 85384; 85610; 85730; 86704; 86706; 86780; 86803; 86850; 86900; 86901; 87081; 87340; 88307; 90471; 90686; 99285; G0008; J0690; J2001; J3475; J3490